=== PATIENT | male | born 1980 | race Caucasian/White ===

== ENCOUNTER → 2022-10-14 | Outpatient (CLI) | payer BC ==
[~2022-10-14] MED LIST: HYDACE5 PO; IBUP800 PO; META400 PO
[2022-10-14 11:45] LABS: Alanine Aminotransfer (ALT/SGP 90 U/L (12-78); Albumin, Blood 3.9 g/dL (3.4-5.0); Alk Phos 62 U/L (50-136); Anion Gap 4 mmol/L (6-16); Aspartate Aminotrans (AST/SGOT 32 U/L (12-37); Bilirubin, Total 0.5 mg/dL (0.1-1.0); Blood Urea Nitrogen 16 mg/dL (8-24); CHOL/HDL RATIO 4.2; CO2, Blood 30 mmol/L (21-32); Calcium, Blood 9.4 mg/dL (8.5-10.1); Chloride, Blood 105 mmol/L (98-108); Cholesterol 164 mg/dL (50-200); Creatinine, Blood 1.07 mg/dL (0.60-1.20); Glomerular Filtration Rate 89 (60-); Glucose, Blood 110 mg/dL (70-99); HDL Cholesterol 39 mg/dL (>39); LDL/HDL RATIO 2.7; Low Density Lipoprotein Chol 105 mg/dL (0-110); Potassium, Blood 4.4 mmol/L (3.5-5.5); Sodium, Blood 139 mmol/L (136-145); Total Protein, Blood 7.9 g/dL (6.4-8.2); Triglycerides 101 mg/dL (30-160); Very Low Density Lipoprot Chol 20 mg/dL (6-32)
== END ==
LOC: LAB SHORT 07:30 → LAB 07:30 → EDSTATUS 11:00
PROVIDERS: Physician Assistant
DX: Z00.00 Encounter for general adult medical examination without abnormal findings (principal); Z11.59 Encounter for screening for other viral diseases
CPT/HCPCS: 36415; 80053; 80061; 86803